=== PATIENT | male | born 1935 | race Hispanic/Latino ===

== ENCOUNTER 2016-07-05 08:24 | Day surgery (SDC) | payer MEDICARE, OTHER ==
[2016-06-30 12:24] VITALS: BMI 23.5
[2016-07-05] MEDS ORDERED: Lactated Ringer's 1,000 ML IV ONE ×2 (11:08)
[2016-07-05] MEDS ORDERED: Propofol 10 mg/ml Inj (20 ML) ONE (11:50)
[2016-07-05] MEDS ORDERED: Rocuronium 10 mg/ml (5 ml) ONE (11:51)
[2016-07-05] MEDS ORDERED: Succinylcholine Chloride 20 mg/ml Syr (5 ml) IV ONE (11:51)
[2016-07-05] MEDS ORDERED: Lidocaine Hydrochloride 5 ML INJ ONE (11:52)
[2016-07-05] MEDS ORDERED: ceFAZolin IV 1 gm in Dextrose 50 ML IVPB ONE (11:56)
[2016-07-05] MEDS ORDERED: Bupivacaine HCl 0.25% PF (10 ml) Inj ONE (12:15)
[2016-07-05] MEDS ORDERED: Oxycodone/Acetaminophen 5/325 mg Tab PO PRN (12:20)
[2016-07-05] MEDS ORDERED: HYDROmorphone 0.5 mg/0.5 ml ISec IVP PRN (12:27)
--- NOTE | 2016-07-05 14:36 | OP ---
PROCEDURE DATE: 07/05/2016 PREOPERATIVE DIAGNOSIS: Midline ventral hernia. POSTOPERATIVE DIAGNOSES: Midline ventral hernia with adhesions. PROCEDURE PERFORMED: Repair of midline ventral hernia with extensive lysis of adhesions. SURGEON: Saul Gant MD SERVICE OPERATOR: Dr. Hartman ANESTHESIA: General endotracheal. ESTIMATED BLOOD LOSS: 30 mL. POSTOPERATIVE CONDITION: Stable. INDICATIONS FOR SURGERY: This is an 80-year-old male with a painful midline hernia, who now will und ergo operative repair. PROCEDURE: The patient taken to the operating room, placed in the supine position. General anesthes ia was administered and the abdomen was prepped and draped. A transverse incision was made over the hernia site. The hernia sac was immediately encountered, dissected free and removed. There was a fa ir amount of adhesions to the hernia site, which were taken down sharply with Metzenbaum scissors. S mall serosal tears of both the small bowel and the transverse colon were repaired with silk. A mesen teric blood vessel was also repaired. A primary repair was accomplished with interrupted #1 Novafil sutures and the wound was irrigated with copious amounts of saline solution. An adjacent tissue wayne sfer closure was performed to close the space by widely undermining, using multiple layers of Mo nocryl, subcuticular Monocryl, and skin clips. The patient tolerated procedure well, returned to rec overy room in stable condition. Saul Gant MD cc: [id number] TT: 07/05/2016 14:36:12 en
[2016-07-07 15:37] VITALS: BP 162/70; PULSE 62; RESP 20; TEMP 97.6; O2SAT 100
== END 2016-07-05 16:32 | disposition home or self-care (01) ==
LOC: C.SDS 08:24
PROVIDERS: ATTEND Surgery
DX: K43.9 Ventral hernia without obstruction or gangrene (principal); K66.0 Peritoneal adhesions (postprocedural) (postinfection); I10 Essential (primary) hypertension
CPT/HCPCS: 49560; J2704; J3010; J7120